=== PATIENT | female | born 1985 | race Caucasian/White ===

== ENCOUNTER 2018-07-07 13:14 | Emergency (ER) | payer SELFPAY ==
[2018-07-07 13:16] VITALS: BP 130/77; PULSE 95; RESP 16; TEMP 36.3; O2SAT 99; BMI 26.8
--- NOTE | 2018-07-07 15:20 | ED.VISSUMM ---
- ER Visit Summary Date of Service: 07/07/18 Chief Complaint: Rash History of Present Illness: The patient is a 33 F with a rash on her scalp. It started yesterday. It started on the right side of her posterior scalp/occipital area. She feels little bumps that are burning and itchy. This has progressed to the left side of her scalp. She was prescribed Keflex at an outside facility earlier today. She has not started taking it yet. She is having worsening symptoms and so she came for a second opinion. The pain radiates into her right ear. She never had anything like this before. Physical Examination: Afebrile and vital signs unremarkable. She has a scaly rash with flat plaques throughout her scalp, primarily in the right occipital region. No vesicles. No erythema or warmth. The remainder of her HEENT exam is unremarkable. Test Results: None performed Emergency Department Course and Treatment: The rash almost appears more like a tinea. She should continue antibiotics but will add topical shampoo, ketoconazole. Follow-up with primary care for recheck. Return for anything new or worse. Treatment Plan: As above Disposition: Discharge Impression: 1. Scalp rash This note was generated with [employer] dictation software. It may contain incorrect words, spelling, and punctuation that were not noted in review of the chart prior to signing ED Disposition - Plan for ED Patient: Referrals: NOT,DEFINED [Primary Care Provider] -
--- NOTE | 2018-07-07 15:23 | ED.DEP ---
ED Disposition - Plan for ED Patient: Instructions: Self-Care for Skin Rashes Prescriptions: Cephalexin [Keflex] 500 mg PO Q6 #40 cap Ketoconazole [Nizoral] 120 ml TP UD 14 Days #1 shampoo Smz/Tmp Ds [Bactrim Ds] 1 tab PO BID #20 tab Referrals: Sherly Almonte [NON-STAFF] -
[2018-07-07 15:36] VITALS: PULSE 83; RESP 16
== END 2018-07-07 15:39 | disposition home or self-care (01) ==
LOC: ED 15:25
PROVIDERS: Emergency Provider Emergency Medicine
DX: R21 Rash and other nonspecific skin eruption (principal); Z72.0 Tobacco use
CPT/HCPCS: 99282